=== PATIENT | female | born 1985 | race Hispanic/Latino ===

== ENCOUNTER 2017-09-19 09:50 | Outpatient (CLI) | payer BC ==
[2017-09-19] MEDS ORDERED: ISOVUE-370 76%-LOCM 1 ML ONE (16:24)
== END 2017-09-19 09:51 | disposition home or self-care (01) ==
LOC: BICCT 09:50
PROVIDERS: ATTEND Internal Medicine
DX: K76.0 Fatty (change of) liver, not elsewhere classified; R10.11 Right upper quadrant pain
CPT/HCPCS: 74177